=== PATIENT | male | born 1955 | race Caucasian/White ===

== ENCOUNTER 2021-12-05 09:01 | Emergency (ER) | payer MEDICAID ==
[~2021-12-05] VITALS: Ht 177.8 cm; Wt 72.7 kg
[2021-12-05 09:25] VITALS: BP 140/70
[2021-12-05] MEDS ORDERED: CIPR7.5D AU (09:49)
== END 2021-12-05 09:58 | disposition home or self-care (01) ==
LOC: EMS 09:01
DX: H60.92 Unspecified otitis externa, left ear (principal); F17.210 Nicotine dependence, cigarettes, uncomplicated; Z98.890 Other specified postprocedural states; Z88.8 Allergy status to other drugs, medicaments and biological substances
CPT/HCPCS: 99283; Z7502